=== PATIENT | male | born 1955 | race Caucasian/White ===

== ENCOUNTER 2021-07-21 10:55 | Emergency (ER) | payer MEDICARE ==
[~2021-07-21] VITALS: Ht 190.5 cm; Wt 117.9 kg
[2021-07-21] MEDS ORDERED: LIDO700A20 TOP (13:43)
[2021-07-21] MEDS ORDERED: CYCL10 PO (13:43)
== END 2021-07-21 14:02 | disposition home or self-care (01) ==
LOC: ER 10:55
DX: S39.012A Strain of muscle, fascia and tendon of lower back, initial encounter (principal); M62.838 Other muscle spasm; I25.2 Old myocardial infarction; Z79.899 Other long term (current) drug therapy; Z87.891 Personal history of nicotine dependence; Z91.041 Radiographic dye allergy status; X50.1XXA Overexertion from prolonged static or awkward postures, initial encounter
CPT/HCPCS: 72100; 93005; 93010; 99283-25; A9270

== ENCOUNTER 2021-07-30 10:44 | Emergency (ER) | payer MEDICARE ==
[~2021-07-30] VITALS: Ht 190.5 cm; Wt 120.2 kg
[~2021-07-30 10:44] MED LIST: CYCL10 PO; LIDO700A20 TOP
[2021-07-30] MEDS ORDERED: OMEP20ER (13:18)
[2021-07-30] MEDS ORDERED: ROSUVASTATIN CA40 MG PO (13:18)
[2021-07-30] MEDS ORDERED: METOPROLOL TART50 M6 (13:18)
[2021-07-30] MEDS ORDERED: AMLODIPINE BESYL5 MG PO (13:19)
[2021-07-30] MEDS ORDERED: EZETIMIBE10 M6 PO (13:19)
[2021-07-30] MEDS ORDERED: Robaxin750 MG PO (14:04)
== END 2021-07-30 14:35 | disposition home or self-care (01) ==
LOC: ER 10:44
DX: M51.36 Other intervertebral disc degeneration, lumbar region (principal); M51.37 Other intervertebral disc degeneration, lumbosacral region; I25.2 Old myocardial infarction; I50.9 Heart failure, unspecified; Z95.5 Presence of coronary angioplasty implant and graft; Z87.891 Personal history of nicotine dependence
CPT/HCPCS: 72100; A9270; J1170; J1885